=== PATIENT | male | born 1970 | race Caucasian/White ===

== ENCOUNTER 2020-06-27 12:07 | Emergency (ER) | payer MEDICAID ==
--- NOTE | 2020-06-27 13:36 | EDM.PDOC ---
ED HPI GENERAL MEDICAL PROBLEM - General Chief Complaint: Drug or Alcohol Abuse Stated Complaint: EVAL FOR [facility] Time Seen by Provider: 06/27/20 12:15 Source of Information: Reports: Patient, Family, Old Records, RN - History of Present Illness INITIAL COMMENTS - FREE TEXT/NARRATIVE: 50-year-old male chronic alcoholic seen twice in [place] in the last few days apparently was discharged to go to [place] but could not get in until today reportedly. His father reports that he was at home and up walking about and falling down last night and agitated. He comes in now for evaluation prior to hopefully going to [place] where he would like to go to detox. Review of the old record shows that he was in some other detox for 3 days prior to being in [place] for the last 2 visits. He has a history of chronic alcoholism. He denies any particular pain anywhere at the moment he is obviously grossly intoxicated. Father is here to give additional history. Patient thinks he may have Covid but does not give any specific symptoms suggestive thereof. Onset: Gradual Duration: Chronic - Related Data Allergies Allergy/AdvReac Type Severity Reaction Status Date / Time No Known Allergies Allergy Verified 06/27/20 12:15 Home Meds: Home Meds Amphetamine/Dextroamphetamine [Adderall XR] 30 mg PO DAILY 06/27/20 [History] Citalopram [Citalopram HBr] 20 mg PO DAILY 06/27/20 [History] Citalopram [Citalopram HBr] 40 mg PO DAILY 06/27/20 [History] Disulfiram 250 mg PO ASDIRECTED 06/27/20 [History] Fluticasone Propionate [Flonase] 16 gm NS BID 06/27/20 [History] LORazepam [Ativan] 1 mg PO QID 06/27/20 [History] Naltrexone HCl [Revia] 50 mg PO ASDIRECTED 06/27/20 [History] busPIRone [Buspar] 10 mg PO DAILY 06/27/20 [History] cloNIDine [Catapres] 0.1 mg PO BID 06/27/20 [History] Past Medical History Psychiatric History: Reports: Addiction Social & Family History - Tobacco Use Tobacco Use Status *Q: Current Every Day Tobacco User Years of Tobacco use: 20 Packs/Tins Daily: 0.2 - Alcohol Use Days Per Week of Alcohol Use: 7 Number of Drinks Per Day: 10 Total Drinks Per Week: 70 - Recreational Drug Use Recreational Drug Use: Yes Recreational Drug Type: Reports: Marijuana/Hashish ED ROS GENERAL - Review of Systems Review Of Systems: See Below Reason Not Obtained: Review of systems are done and in its entirety as best I can but. - Physical Exam Exam: See Below Text/Narrative:: 50-year-old male who is undressed and on the gurney and then is observed standing up pivoting to the toilet where he gets a urine specimen and then is able to stand and pivot back onto the bed. He appears awake and aware but does appear to be grossly intoxicated in his conversation and in his gait. HEENT does not show any tenderness or swelling about the scalp underneath some unruly hair. He has abrasions scattered about his face. No facial droop. Tongue is midline. Oral exam is okay. TMs are normal. Occlusion is normal. Neck supple normal range of motion as he looks about chest is clear with a regular rate and rhythm with no abnormal sounds or murmurs. Abdomen is soft nontender and I do not feel any masses Extremities show all moving normally without deformity. Skin exam shows scattered abrasions all over his body from repetitive falls. Neuro he has physiologic DTR and general tone. No focal deficits are noted. Course - Vital Signs Text/Narrative:: Patient left prior to discharge because he did not want to wait any longer. He did go to [place] and we did fax the results over there noting a blood alcohol of 517 with elevated liver enzymes and positive benzos barbiturates and marijuana in his urine Last Recorded V/S: Last Vital Signs Temp 37.3 C 06/27/20 12:20 Pulse 98 06/27/20 12:20 Resp 19 06/27/20 12:20 BP 147/92 H 06/27/20 12:20 Pulse Ox 96 06/27/20 12:20 - Orders/Labs/Meds Orders: Active Orders 24 hr Category Date Time Status EKG Documentation Completion [RC] ASDIRECTED Care 06/27/20 13:29 Active EKG 12 Lead [EK] Stat Ther 06/27/20 13:28 Ordered Labs: Laboratory Tests 06/27/20 06/27/20 06/27/20 Range/Units 13:33 13:37 13:39 WBC (4.5-11.0) K/uL RBC (4.30-5.90) M/uL Hgb (12.0-15.0) g/dL Hct (40.0-54.0) % MCV (80-98) fL MCH (27-31) pg MCHC (32-36) % Plt Count (150-400) K/uL PT 9.5 (9.5-12.0) sec INR 0.87 (0.80-1.20) Sodium (140-148) mmol/L Potassium (3.6-5.2) mmol/L Chloride (100-108) mmol/L Carbon Dioxide (21-32) mmol/L Anion Gap (5.0-14.0) mmol/L BUN (7-18) mg/dL Creatinine (0.8-1.3) mg/dL Est Cr Clr Drug Dosing mL/min Estimated GFR (MDRD) (>60) Glucose (74-106) mg/dL Calcium (8.5-10.1) mg/dL Total Bilirubin (0.2-1.0) mg/dL AST (15-37) U/L ALT (12-78) U/L Alkaline Phosphatase (46-116) U/L Total Protein (6.4-8.2) g/dL Albumin (3.4-5.0) g/dL Globulin (2.3-3.5) g/dL Albumin/Globulin Ratio (1.2-2.2) Urine Color Yellow (YELLOW) Urine Appearance Clear (CLEAR) Urine pH 6.0 (5.0-8.0) Ur Specific Boles 1.020 (1.008-1.030) Urine Protein 30 H (NEGATIVE) mg/dL Urine Glucose (UA) Negative (NEGATIVE) mg/dL Urine Ketones Negative (NEGATIVE) mg/dL Urine Occult Blood Trace-lysed H (NEGATIVE) Urine Nitrite Negative (NEGATIVE) Urine Bilirubin Negative (NEGATIVE) Urine Urobilinogen 0.2 (0.2-1.0) EU/dL Ur Leukocyte Esterase Negative (NEGATIVE) Urine RBC Not seen (0-5) Urine WBC 0-5 (0-5) Ur Epithelial Cells Not seen Amorphous Sediment Not seen Urine Bacteria Not seen Urine Mucus Moderate Urine Opiates Screen Negative (NEGATIVE) Ur Oxycodone Screen Negative (NEGATIVE) Urine Methadone Screen Negative (NEGATIVE) Ur Propoxyphene Screen Negative (NEGATIVE) Ur Barbiturates Screen Presumptive positive H (NEGATIVE) Ur Tricyclics Screen Negative (NEGATIVE) Ur Phencyclidine Scrn Negative (NEGATIVE) Ur Amphetamine Screen Negative (NEGATIVE) U Methamphetamines Scrn Negative (NEGATIVE) Urine MDMA Screen Negative (NEGATIVE) U Benzodiazepines Scrn Presumptive positive H (NEGATIVE) U Cocaine Metab Screen Negative (NEGATIVE) U Marijuana (THC) Screen Presumptive positive H (NEGATIVE) Ethyl Alcohol mg/dL 06/27/20 06/27/20 06/27/20 Range/Units 13:39 13:39 13:39 WBC 7.9 (4.5-11.0) K/uL RBC 4.18 L (4.30-5.90) M/uL Hgb 12.6 (12.0-15.0) g/dL Hct 39.0 L (40.0-54.0) % MCV 93 (80-98) fL MCH 30 (27-31) pg MCHC 32 (32-36) % Plt Count 451 H (150-400) K/uL PT (9.5-12.0) sec INR (0.80-1.20) Sodium 146 (140-148) mmol/L Potassium 3.6 (3.6-5.2) mmol/L Chloride 109 H (100-108) mmol/L Carbon Dioxide 22 (21-32) mmol/L Anion Gap 18.6 H (5.0-14.0) mmol/L BUN 10 (7-18) mg/dL Creatinine 0.8 (0.8-1.3) mg/dL Est Cr Clr Drug Dosing 123.16 mL/min Estimated GFR (MDRD) > 60 (>60) Glucose 101 (74-106) mg/dL Calcium 7.8 L (8.5-10.1) mg/dL Total Bilirubin 0.3 (0.2-1.0) mg/dL AST 140 H (15-37) U/L ALT 251 H (12-78) U/L Alkaline Phosphatase 117 H (46-116) U/L Total Protein 6.8 (6.4-8.2) g/dL Albumin 3.4 (3.4-5.0) g/dL Globulin 3.4 (2.3-3.5) g/dL Albumin/Globulin Ratio 1.0 L (1.2-2.2) Urine Color (YELLOW) Urine Appearance (CLEAR) Urine pH (5.0-8.0) Ur Specific Boles (1.008-1.030) Urine Protein (NEGATIVE) mg/dL Urine Glucose (UA) (NEGATIVE) mg/dL Urine Ketones (NEGATIVE) mg/dL Urine Occult Blood (NEGATIVE) Urine Nitrite (NEGATIVE) Urine Bilirubin (NEGATIVE) Urine Urobilinogen (0.2-1.0) EU/dL Ur Leukocyte Esterase (NEGATIVE) Urine RBC (0-5) Urine WBC (0-5) Ur Epithelial Cells Amorphous Sediment Urine Bacteria Urine Mucus Urine Opiates Screen (NEGATIVE) Ur Oxycodone Screen (NEGATIVE) Urine Methadone Screen (NEGATIVE) Ur Propoxyphene Screen (NEGATIVE) Ur Barbiturates Screen (NEGATIVE) Ur Tricyclics Screen (NEGATIVE) Ur Phencyclidine Scrn (NEGATIVE) Ur Amphetamine Screen (NEGATIVE) U Methamphetamines Scrn (NEGATIVE) Urine MDMA Screen (NEGATIVE) U Benzodiazepines Scrn (NEGATIVE) U Cocaine Metab Screen (NEGATIVE) U Marijuana (THC) Screen (NEGATIVE) Ethyl Alcohol 517 mg/dL Meds: Medications Discontinued Medications Generic Name Dose Route Start Last Admin Trade Name Freq PRN Reason Stop Dose Admin Lorazepam 2 mg 06/27/20 14:33 06/27/20 14:39 Ativan PO 06/27/20 14:34 2 mg ONETIME ONE Administration Departure - Departure Time of Disposition: 16:00 Disposition: Home, Self-Care 01 Clinical Impression: Alcoholic intoxication, chronic - Discharge Information Instructions: Alcohol Use Disorder, Alcoholic Liver Disease, Alcohol Intoxication Referrals: PCP,None [Primary Care Provider] - Forms: ED Department Discharge Additional Instructions: Patient to go to [place] and hopefully they will admit him Sepsis Event Note (ED) - Evaluation Sepsis Screening Result: No Definite Risk - Focused Exam Vital Signs: Vital Signs Temp Pulse Resp BP Pulse Ox 06/27/20 12:20 37.3 C 98 19 147/92 H 96 - My Orders Last 24 Hours: My Active Orders 06/27/20 13:28 EKG 12 Lead [EK] Stat 06/27/20 13:29 EKG Documentation Completion [RC] ASDIRECTED - Assessment/Plan Last 24 Hours: My Active Orders 06/27/20 13:28 EKG 12 Lead [EK] Stat 06/27/20 13:29 EKG Documentation Completion [RC] ASDIRECTED
--- NOTE | 2020-06-27 14:29 | CT ---
Head wo Cont CLINICAL HISTORY: Head injury, alcoholism COMPARISON: None TECHNIQUE: Transverse scans were obtained from the base of the skull through the vertex without IV contrast on a multislice, multidetector CT scanner. Auto dosage reduction and iterative reconstruction techniques employed. FINDINGS: No focal abnormal parenchymal density is identified.. There is no mass effect, hemorrhage, or extraaxial collection. The basal cisterns and sulci over the convexities are normal. The ventricles are normal for age. There is some fluid density in the right mastoid air cells IMPRESSION: No acute intracranial findings Minimal changes of mastoiditis on the right
[2020-06-27] MEDS ORDERED: LORazepam 1 MG Tab PO ONE (14:33)
== END 2020-06-27 16:20 | disposition left against medical advice (07) ==
LOC: JP.ED 12:07
DX: F10.129 Alcohol abuse with intoxication, unspecified (principal); Z72.0 Tobacco use
CPT/HCPCS: 36415; 70450; 80053; 80305; 80307; 81001; 85027; 85610; 93005; 99284; A9270